=== PATIENT | male | born 1965 | race Hispanic/Latino ===

== ENCOUNTER 2023-01-26 11:27 | Inpatient (IN) | payer OTHER ==
[~2023-01-26] VITALS: Ht 172.7 cm; Wt 82.6 kg
[2023-01-26] MEDS ORDERED: ONDANSETRON HCL INJ 2MG/ML 2ML 2 MG/ML VIAL ONE (11:31)
[2023-01-26] MEDS ORDERED: SEVOFLURANE INHAL SOLN 250 ML PEN BTL ONE (11:31)
[2023-01-26] MEDS ORDERED: LIDOCAINE HCL 2% LOCAL INJ 5 ML SDV VIAL INJ ONE (11:31)
[2023-01-26] MEDS ORDERED: PROPOFOL IV EMULSION 10 MG/ML 20 ML VIAL ONE (11:31)
[2023-01-26] MEDS ORDERED: EPHEDRINE SULFATE INJ 50 MG/ML VIAL ONE (11:31)
[2023-01-26] MEDS ORDERED: SODIUM CHLORIDE FLUSH 10 ML SYR INJ PRN (12:00)
[2023-01-26] MEDS ORDERED: Vancomycin IV 1 GM in SODIUM CHLORIDE 0.9% 250ML 250 ML IV ONE ×2 (12:00→15:00)
[2023-01-26] MEDS ORDERED: ONDANSETRON HCL INJ 2MG/ML 2ML 2 MG/ML VIAL IV PRN (12:00)
[2023-01-26 12:11] LABS: BASOPHILS # (AUTO) 0.1 (0.0-0.1); BASOPHILS % 0.9 % (0.0-1.0); EOSINOPHILS # (AUTO) 0.3 (0.0-0.4); EOSINOPHILS % 3.1 % (0.0-6.0); HEMATOCRIT 42.8 % (38.2-49.6); HEMOGLOBIN 14.1 g/dL (14.0-18.0); LYMPHOCYTES # (AUTO) 2.8 (1.0-3.2); LYMPHOCYTES % 32.6 % (18.0-39.1); MEAN CORPUSCULAR HEMOGLOBIN 24.1 pg (28-32); MEAN CORPUSCULAR HGB CONC 32.9 g/dL (31-35); MONOCYTES # (AUTO) 0.7 (0.2-0.8); MONOCYTES % 8.1 % (4.4-11.3); NEUTROPHILS # (AUTO) 4.6 (2.1-6.9); NEUTROPHILS % 54.5 % (38.7-80.0); PLATELET COUNT 617 x10e3/uL (140-360); RED BLOOD COUNT 5.86 x10e6/uL (4.3-5.7); RED CELL DISTRIBUTION WIDTH 16.1 % (11.7-14.4); WHITE BLOOD COUNT 8.43 x10e3/uL (4.8-10.8)
[2023-01-26 12:30] LABS: ANION GAP 17.6 mmol/L (8-16); CALCIUM 9.8 mg/dL (8.4-10.2); CREATININE, SERUM 0.85 mg/dL (0.72-1.25); POTASSIUM 3.6 mmol/L (3.5-5.1)
[2023-01-26 14:22] VITALS: BP 137/86; PULSE 96; RESP 16; TEMP 98.7; O2SAT 100
[2023-01-26 14:23] VITALS: BP 137/86; PULSE 96; RESP 16; TEMP 98.7; O2SAT 100
[2023-01-26 14:27] VITALS: BP 137/86; PULSE 96; RESP 16; TEMP 98.7; O2SAT 100
[2023-01-26] MEDS ORDERED: JARDIANCE25 MG (14:45)
[2023-01-26] MEDS ORDERED: VASOTEC5 MG PO (14:45)
[2023-01-26] MEDS ORDERED: METFORMIN HCL500 MG PO (14:45)
[2023-01-26] MEDS ORDERED: ENALAPRIL-HCTZ1 EACH PO (15:05)
[2023-01-26 20:21] VITALS: BP 138/90; PULSE 97; RESP 18; TEMP 98.1; O2SAT 100
[2023-01-26 21:45] VITALS: BP 138/90; PULSE 97; RESP 18; TEMP 98.1; O2SAT 100
[2023-01-27] VITALS (7 sets, daily range): BP systolic 119–151; BP diastolic 71–93; PULSE 78–93; RESP 16–18; TEMP 96.9–98.5; O2SAT 98–100
[2023-01-27] MEDS: Vancomycin IV 1 GM in SODIUM CHLORIDE 0.9% 250ML 250 ML IV SCH ×2 (02:51→15:55)
[2023-01-27] MEDS ORDERED: DEXTROSE 50% SYRINGE 50 ML IV PRN (10:45)
[2023-01-27] MEDS: GABAPENTIN 100 MG CAP PO SCH ×3 (11:11→21:33)
[2023-01-27] MEDS: INSULIN LISPRO 100 UNIT/1 ML 3ML VIAL SQ SCH ×3 (11:17→21:00)
[2023-01-28] VITALS (7 sets, daily range): BP systolic 112–148; BP diastolic 72–89; PULSE 69–93; RESP 16–19; TEMP 97.7–98.5; O2SAT 98–100
[2023-01-28] MEDS: Vancomycin IV 1 GM in SODIUM CHLORIDE 0.9% 250ML 250 ML IV SCH ×2 (03:41→18:31)
[2023-01-28 07:25] LABS: BASOPHILS # (AUTO) 0.1 (0.0-0.1); BASOPHILS % 1.4 % (0.0-1.0); EOSINOPHILS # (AUTO) 0.4 (0.0-0.4); EOSINOPHILS % 5.2 % (0.0-6.0); HEMATOCRIT 39.3 % (38.2-49.6); HEMOGLOBIN 12.9 g/dL (14.0-18.0); LYMPHOCYTES # (AUTO) 2.8 (1.0-3.2); LYMPHOCYTES % 39.9 % (18.0-39.1); MEAN CORPUSCULAR HEMOGLOBIN 24.2 pg (28-32); MEAN CORPUSCULAR HGB CONC 32.8 g/dL (31-35); MEAN CORPUSCULAR VOLUME 73.6 fL (81-99); MONOCYTES # (AUTO) 0.7 (0.2-0.8); MONOCYTES % 9.5 % (4.4-11.3); NEUTROPHILS % 43.3 % (38.7-80.0); PLATELET COUNT 446 x10e3/uL (140-360); RED BLOOD COUNT 5.34 x10e6/uL (4.3-5.7); RED CELL DISTRIBUTION WIDTH 15.9 % (11.7-14.4); WHITE BLOOD COUNT 6.92 x10e3/uL (4.8-10.8)
[2023-01-28] MEDS: INSULIN LISPRO 100 UNIT/1 ML 3ML VIAL SQ SCH ×4 (07:30→20:44)
[2023-01-28 07:51] LABS: CALCIUM 8.5 mg/dL (8.4-10.2); CREATININE, SERUM 0.71 mg/dL (0.72-1.25)
[2023-01-28] MEDS: GABAPENTIN 100 MG CAP PO SCH ×3 (10:20→21:27)
[2023-01-28] MEDS ORDERED: ONDANSETRON HCL 4 MG ORAL DISINTEGRATING TAB PO PRN (13:15)
[2023-01-29] VITALS (7 sets, daily range): BP systolic 126–173; BP diastolic 80–99; PULSE 65–96; RESP 18–20; TEMP 97.3–98.6; O2SAT 98–100
[2023-01-29] MEDS ORDERED: Vancomycin IV 1 GM in SODIUM CHLORIDE 0.9% 250ML 250 ML IV SCH (07:00)
[2023-01-29] MEDS: INSULIN LISPRO 100 UNIT/1 ML 3ML VIAL SQ SCH ×4 (07:30→21:00)
[2023-01-29] MEDS: GABAPENTIN 100 MG CAP PO SCH ×3 (10:48→21:50)
[2023-01-29] MEDS: CEFTRIAXONE 2 GM in SODIUM CHLORIDE 0.9% 100 ML IV SCH (16:58)
[2023-01-30] VITALS (7 sets, daily range): BP systolic 134–172; BP diastolic 85–95; PULSE 80–91; RESP 16–20; TEMP 97.6–98.1; O2SAT 96–100
[2023-01-30] MEDS ORDERED: BACITRACIN ZINC 15 GM OINT ONE (06:30)
[2023-01-30] MEDS ORDERED: BETAMETHASONE DISODIUM PHOS 6 MG/ML VIAL ONE (06:30)
[2023-01-30] MEDS ORDERED: BUPIVACAINE HCL 0.5% INJ 30 ML VIAL INJ ONE (06:31)
[2023-01-30] MEDS ORDERED: LIDOCAINE HCL 1% LOCAL INJ 20 ML VIAL ONE (06:31)
[2023-01-30] MEDS ORDERED: Vancomycin IV 1 GM VIAL ONE (07:20)
[2023-01-30] MEDS: INSULIN LISPRO 100 UNIT/1 ML 3ML VIAL SQ SCH ×4 (07:30→21:00)
[2023-01-30] MEDS ORDERED: FENTANYL CITRATE/PF 100MCG/2 ML INJ ONE (09:16)
[2023-01-30] MEDS ORDERED: MIDAZOLAM HCL 2 MG/2 ML VIAL ONE (09:16)
[2023-01-30] MEDS: GABAPENTIN 100 MG CAP PO SCH ×3 (09:17→21:07)
[2023-01-30] MEDS: DAPTOMYCIN 500mg 10ML 500 MG in SODIUM CHLORIDE 0.9% 100 ML IV SCH ×2 (11:43→13:15)
[2023-01-30] MEDS: CEFTRIAXONE 2 GM in SODIUM CHLORIDE 0.9% 100 ML IV SCH (16:01)
[2023-01-31 00:49] VITALS: BP 132/92; PULSE 76; RESP 18; TEMP 97.5; O2SAT 99
[2023-01-31 04:00] VITALS: BP 125/83; PULSE 70; RESP 18; TEMP 97.7; O2SAT 99
[2023-01-31 05:27] LABS: BASOPHILS # (AUTO) 0.1 (0.0-0.1); EOSINOPHILS # (AUTO) 0.4 (0.0-0.4); EOSINOPHILS % 4.7 % (0.0-6.0); HEMATOCRIT 37.5 % (38.2-49.6); HEMOGLOBIN 12.3 g/dL (14.0-18.0); LYMPHOCYTES # (AUTO) 3.5 (1.0-3.2); LYMPHOCYTES % 39.9 % (18.0-39.1); MEAN CORPUSCULAR HGB CONC 32.8 g/dL (31-35); MEAN CORPUSCULAR VOLUME 73.2 fL (81-99); MONOCYTES # (AUTO) 0.7 (0.2-0.8); MONOCYTES % 7.8 % (4.4-11.3); NEUTROPHILS # (AUTO) 4.1 (2.1-6.9); PLATELET COUNT 465 x10e3/uL (140-360); RED BLOOD COUNT 5.12 x10e6/uL (4.3-5.7); RED CELL DISTRIBUTION WIDTH 15.9 % (11.7-14.4); WHITE BLOOD COUNT 8.87 x10e3/uL (4.8-10.8)
[2023-01-31] MEDS: INSULIN LISPRO 100 UNIT/1 ML 3ML VIAL SQ SCH ×2 (07:30→11:30)
[2023-01-31 08:57] VITALS: BP 162/97; PULSE 85; RESP 18; TEMP 97.4; O2SAT 100
[2023-01-31] MEDS: GABAPENTIN 100 MG CAP PO SCH ×2 (09:18→15:00)
[2023-01-31 12:25] VITALS: BP 149/89; PULSE 85; RESP 18; TEMP 98.6; O2SAT 99
== END 2023-01-31 16:46 | disposition home or self-care (01) | DRG 617 ==
LOC: ER 11:43 → ERHOLD 12:04 → MED/SURG2 14:06
PROVIDERS: ADMIT Internal Medicine; ATTEND Internal Medicine
PROC: 0QBQ0ZZ Excision of Right Toe Phalanx, Open Approach (ICD-10-PCS; 2023-01-28)
PROC: 02HV33Z Insertion of Infusion Device into Superior Vena Cava, Percutaneous Approach (ICD-10-PCS; 2023-01-30)
PROC: B548ZZA Ultrasonography of Superior Vena Cava, Guidance (ICD-10-PCS; 2023-01-30)
PROC: 0Y6T0Z0 Detachment at Right 3rd Toe, Complete, Open Approach (ICD-10-PCS; principal; 2023-01-30 07:00)
DX: E11.621 Type 2 diabetes mellitus with foot ulcer (principal); E11.52 Type 2 diabetes mellitus with diabetic peripheral angiopathy with gangrene; M86.8X7 Other osteomyelitis, ankle and foot; I96 Gangrene, not elsewhere classified; L03.115 Cellulitis of right lower limb; L02.611 Cutaneous abscess of right foot; E11.69 Type 2 diabetes mellitus with other specified complication; L97.514 Non-pressure chronic ulcer of other part of right foot with necrosis of bone; E11.42 Type 2 diabetes mellitus with diabetic polyneuropathy; I10 Essential (primary) hypertension; B96.20 Unspecified Escherichia coli [E. coli] as the cause of diseases classified elsewhere; Z87.891 Personal history of nicotine dependence; Z83.3 Family history of diabetes mellitus; Z82.49 Family history of ischemic heart disease and other diseases of the circulatory system; Z20.822 Contact with and (suspected) exposure to COVID-19; Z79.84 Long term (current) use of oral hypoglycemic drugs; Z79.899 Other long term (current) drug therapy
CPT/HCPCS: 36415; 36569; 71045; 80048; 80202; 82948; 83036; 85025; 87040; 87071; 87075; 87186; 87205; 88304; 88305; 88311; 93005; 96361; 99284; J0696; J2001; J2250; J2405; J2543; J7050; U0002